=== PATIENT | male | born 1985 | race Caucasian/White ===

== ENCOUNTER 2019-09-01 16:35 | Emergency (ER) | payer SELFPAY | END 2019-09-01 17:07 | disposition home or self-care (01) | LOC: MADERS 16:35 | DX: T16.1XXA Foreign body in right ear, initial encounter (principal); F17.220 Nicotine dependence, chewing tobacco, uncomplicated | CPT/HCPCS: 69200 ==

== ENCOUNTER 2023-01-23 08:49 | Emergency (ER) | payer SELFPAY ==
[2023-01-23] MEDS ORDERED: Lidocaine 1% w/Epinephrine 1:100K 20 ML VIAL ONE (10:06)
[2023-01-23] MEDS ORDERED: Boostrix 0.5 ML (Tdap) VIAL (>/=7 yrs of age) ONE (10:06)
== END 2023-01-23 10:52 | disposition home or self-care (01) ==
LOC: MADERS 08:49
DX: L02.212 Cutaneous abscess of back [any part, except buttock and flank] (principal); F17.220 Nicotine dependence, chewing tobacco, uncomplicated; Z23 Encounter for immunization
CPT/HCPCS: 10060; 87070; 87077; 87186; 87205; 90471; 90715